=== PATIENT | male | born 1995 | race Caucasian/White ===

== ENCOUNTER 2017-03-27 07:52 | Emergency (ER) | payer OTHER ==
[~2017-03-27] VITALS: Ht 180.3 cm; Wt 72.7 kg
[2017-03-27 07:53] VITALS: BP 150/77
[2017-03-27] MEDS ORDERED: IBUP80TA PO (08:46)
[2017-03-27] MEDS ORDERED: CYCL10TA PO (08:46)
== END 2017-03-27 08:50 | disposition home or self-care (01) ==
LOC: M ED 07:52
DX: S16.1XXA Strain of muscle, fascia and tendon at neck level, initial encounter (principal); X50.9XXA Other and unspecified overexertion or strenuous movements or postures, initial encounter; Y92.89 Other specified places as the place of occurrence of the external cause; Y93.62 Activity, american flag or touch football; Y99.8 Other external cause status